=== PATIENT | female | born 1945 | race Caucasian/White ===

== ENCOUNTER 2022-04-05 11:05 | Emergency (ER) | payer MEDICARE, SELFPAY ==
--- NOTE | ~2022-04-05 | CT_ITS ---
EXAMINATION: CT abdomen pelvis wo con DATE: 04/05/2022 12:37 INDICATION: Left lower quadrant pain TECHNIQUE: Computed tomography (CT) of the abdomen and pelvis was performed without intravenous contr ast. The dose-length product (DLP) was 1317.04 mGy-cm. Automated exposure control and iterative recon struction technique were employed. COMPARISON: None FINDINGS: The lung bases are clear. The heart size is normal. There is a small sliding hiatal hernia. The liver, spleen, pancreas, gallbladder, and adrenal glands are normal. Cysts of the kidneys measur e up to 3.1 cm on the right. No pathologically enlarged abdominal or pelvic lymph nodes are identifie d. There is no free intraperitoneal gas or evidence of bowel obstruction. There is calcified atherosc lerosis of the aorta and many of the other arteries. There is a tiny focus of intraluminal gas in the urinary bladder, correlate for recent catheterization. There is severe lumbar spondylosis. IMPRESSION: 1. No CT correlate for the patient's symptoms. Reviewed, dictated and finalized at location B.
[2022-04-05 11:07] VITALS: BP 184/84; PULSE 72; RESP 18; TEMP 36.6; O2SAT 98
[2022-04-05 11:21] VITALS: PULSE 71; RESP 20; TEMP 36.8; O2SAT 97
[2022-04-05 11:37] LABS: Basophils Absolute Auto 0.1 K/mm3 (0.0-0.1); Basophils Percent Auto 0.5 % (0.2-1.2); Eosinophils Percent Auto 0.1 % (0-4.4); Hematocrit 42.2 % (37.0-47.0); Hemoglobin 13.6 g/dL (12.0-15.0); Immature Granulocyte Absolute 0.11 K/mm3 (0.00-0.031); Immature Granulocyte Percent A 0.7 % (0-0.5); Lymphocytes Absolute Auto 1.78 K/mm3 (0.9-3.2); Lymphocytes Percent Auto 11.9 % (18.3-44.2); Mean Corpuscular HGB Conc 32.2 g/dl (32-36); Mean Corpuscular Hemoglobin 28.3 pg (26-34); Mean Corpuscular Volume 87.7 fl (80-100); Monocytes Absolute Auto 0.6 K/mm3 (0.1-0.6); Monocytes Percent Auto 4.1 % (2.6-8.5); Neutrophils Absolute Auto 12.4 K/mm3 (1.3-6.7); Neutrophils Percent Auto 82.7 % (45.5-73.1); Platelet Count Result 241 k/mm3 (150-375); Red Blood Count 4.81 M/mm3 (4.2-5.4); Red Cell Distribution Width 13.6 % (11.5-14.5)
[2022-04-05 11:47] LABS: Appearance Urine Clear (Clear); Bilirubin Urine Negative (Negative); Blood Urine Negative (Negative); Color Urine Yellow (Yellow); Glucose Urine UA Trace mg/dL (Negative); Ketones Urine Negative (Negative); Leukocyte Esterase Ur Trace LEU/UL (Negative); Nitrate Urine Negative (Negative); Protein Urine Negative (Negative); Urobilinogen Urine 0.2 mg/dL (<2.0); pH Urine 6.5 (5.0-9.0)
[2022-04-05 11:50] LABS: Mucus Urine Rare /lpf; RBC Urine 0-2 /hpf (0-2); Squamous Epithelial Cell Urine Rare /hpf (Few); WBC Urine 0-3 /hpf
--- NOTE | 2022-04-05 11:50 | ED.ABDPAIN ---
HPI - Abdominal Pain General Chief Complaint: Abdominal Pain Stated Complaint: vomiting Time Seen by Provider: 04/05/22 11:32 History of Present Illness HPI narrative: 76-year-old female presents emergency room secondary left-sided abdominal pain is been going on since yesterday. She states it got progressively worse through the night. She states she had some chills but no fevers. She states he had a colonoscopy done years ago and told she had diverticulosis. She never had diverticulitis. She has had some chronic issues with some mild urinary incontinence. No change in her urinary status lately. No history of any kidney stones. Her bowels been moving fine. She not take anything for the pain prior to coming to emergency room today. Related Data Allergies Allergy/AdvReac Type Severity Reaction Status Date / Time atorvastatin Allergy Severe Other Verified 12/21/18 10:11 procaine Allergy Severe Swelling Verified 12/21/18 10:10 Cephalosporins Allergy Mild Hives Verified 04/05/22 11:19 povidone Allergy Mild Hives Verified 04/05/22 11:19 iodine Allergy Unknown Hives Verified 04/05/22 11:19 meperidine Allergy Unknown Unknown Verified 04/05/22 11:19 Penicillins Allergy Unknown Hives Verified 04/05/22 11:19 Sulfa (Sulfonamide Allergy Unknown Hives Verified 04/05/22 11:19 Antibiotics) iohexol Allergy Hives Verified 04/05/22 11:19 [From contrast - CT, X-RAY] CHLOROPROCAINE HCL (Generic Allergy Unknown Y Uncoded 12/21/18 10:10 Allergy) LOCALANESTHETIC Allergy Unknown Unknown Uncoded 04/05/22 11:19 NKFA Allergy Unknown Unknown Uncoded 04/05/22 11:19 SULFAMETHOXAZOLE (Generic Allergy Unknown Y Uncoded 12/21/18 10:10 Allergy) Review of Systems Review of Systems: CONSTITUTIONAL: Denies fever, chills, or sweats. EYES: Denies visual changes, redness, or discharge. ENT: Denies rhinorrhea, congestion, sore throat, or otalgia. CARDIOVASCULAR: Denies chest pain, palpitations, or edema. RESPIRATORY: Denies cough or dyspnea. GASTROINTESTINAL: Left-sided abdominal pain mainly in the left lower as well as left upper quadrants. No nausea vomiting GENITOURINARY: Denies dysuria or hematuria. SKIN: Denies rash or itching. MUSCULOSKELETAL: Denies back pain, joint pain, or myalgia. NEUROLOGIC: Denies headache, numbness, or weakness. PSYCHIATRIC: Denies anxiety or depression. [facility] Past Medical History Medical History (Updated 04/05/22 @ 13:10 by Diallo Knowles DO) Anxiety Diabetes mellitus type 2 in obese Hypertension Surgical History Surgical History (Updated 04/05/22 @ 11:52 by Diallo Knowles DO) History of appendectomy History of oophorectomy Social History Social History (Updated 04/05/22 @ 11:52 by Diallo Knowles DO) Smoking status: Never smoker Exam Narrative: APPEARANCE: Well appearing, no pain or distress, well-nourished. Patient is obese Head normocephalic and atraumatic. EYES: PERRLA/EOMI, conjunctivae very clear. NOSE: Normal with no drainage EARS:TMS clear Chris Ellis, with good light reflex. THROAT: Pharynx clear, no exudate. NECK: Supple. No adenopathy, no masses. RESPIRATORY: Airway patent, respirations nonlabored. Clear to auscultation bilaterally, no rales, rhonchi, wheezing. CARDIOVASCULAR: Regular rate and rhythm without murmurs, rubs, or gallops. ABDOMINAL: Soft, tenderness to palpation left lower and left upper quadrant. No rebound rigidity guarding. No masses. No CVA tenderness. Musculoskeletal: Moves all extremities. Strength/ROM intact, No edema, No calf tenderness. NEURO: Alert. Cranial nerves II through XII intact. Normal gait. Good coordination. Nonfocal examination. SKIN:: Warm, dry. Normal Color PSYCHIATRIC: Normal affect/mood, normal interaction Course Course Emergency Course: Patient states she gets extremely anxious and requesting something prior to going to get a CAT scan subsequently given Ativan 0.5 mg IV. She has some allergy to iodine but in further questioning
[2022-04-05 11:56] LABS: Add Urine Microscopic? YES
[2022-04-05 11:56] LABS: Alanine Aminotransferase 27 U/L (6-35); Albumin Level 4.7 g/dL (3.5-5.1); Alkaline Phosphatase 99 U/L (38-126); Anion Gap 10 mmol/L (8-16); Aspartate Amino Transferase 33 U/L (14-36); Bilirubin,Total 0.7 mg/dL (0.2-1.3); Blood Urea Nitrogen 15 mg/dL (7-17); Carbon Dioxide 25 mmol/L (22-30); Chloride 99 mmol/L (98-107); Estimated CRCL calculation 77 ml/min; Estimated Glomerular Filt Rate > 60; Glucose 207 mg/dL (65-110); Lipase 87 U/L (23-300); Potassium 4.1 mmol/L (3.4-5.0); Sodium 134 mmol/L (137-145)
[2022-04-05] MEDS: LORazepam INJ (*CRX) 2 MG/ML VIAL 0.5 MG IV PUSH (12:07)
[2022-04-05] MEDS: diphenhydrAMINE HCl INJ 50 MG/ML VIAL 25 MG IV PUSH (12:07)
[2022-04-05] MEDS: methylPREDNISolone SOD SUCC 40 MG VIAL IV PUSH (12:07)
== END 2022-04-05 13:26 | disposition home or self-care (01) ==
PROVIDERS: Emergency Provider Emergency Medicine; PCP Family Medicine
DX: N39.0 Urinary tract infection, site not specified (principal); R10.9 Unspecified abdominal pain; E11.9 Type 2 diabetes mellitus without complications; I10 Essential (primary) hypertension
CPT/HCPCS: 36415; 74176; 80053; 81001; 83690; 85025; 96374; 96375; 99284; J1200; J2060; J2920